=== PATIENT | female | born 1995 | race Two or more races ===

== ENCOUNTER 2024-10-10 07:34 | Inpatient (IN) ==
[~2024-10-10 07:34] MED LIST: NS 0.45% 1000 ml BAG 1,000 ML IV SCH; Naloxone 0.4 mg VIAL 0.4 mg/ml 1 ml VIAL IV PRN; Ondansetron 4 mg VIAL 2 MG/ML 2 ml VIAL IV PRN
[2024-10-10] MEDS ORDERED: Heparin 5000 UNITS/ML 1 mL VIAL ONE (07:56)
[2024-10-10] MEDS ORDERED: ceFAZolin 1 GM in Dextrose 1 GM/50 ML BAG ONE (07:56)
[2024-10-10] MEDS ORDERED: Scopolamine 1 mg/72hr PATCH ONE (07:56)
[2024-10-10] MEDS ORDERED: ceFAZolin 2 GM PREMIX 2 GM/50 ML BAG ONE (07:57)
[2024-10-10] MEDS: Scopolamine 1 mg/72hr PATCH TRANSDERM ONE (08:18)
[2024-10-10] MEDS ORDERED: Dexamethasone IV 4 MG/ML VIAL 1 ml VIAL ONE ×2 (08:19→09:05)
[2024-10-10] MEDS: Lactated Ringers 1000 ml BAG 1,000 ML IV SCH ×2 (08:19→14:20)
[2024-10-10] MEDS: Buffered Lidocaine 1% SYRIN 1 ml INTRADERM ONE (08:19)
[2024-10-10] MEDS ORDERED: Propofol 10 MG/ML 20 ML BTL ONE ×2 (08:19→09:05)
[2024-10-10] MEDS ORDERED: Lidocaine 2% PF 5 ML VIAL ONE ×2 (08:19→09:05)
[2024-10-10] MEDS: Acetaminophen IV 1 GM/100ML 1,000 MG/100 ML BAG IV ONE (08:19)
[2024-10-10] MEDS ORDERED: Ondansetron 4 mg VIAL 2 MG/ML 2 ml VIAL ONE ×2 (08:19→09:05)
[2024-10-10] MEDS ORDERED: Midazolam 2 mg/2 ml VIAL 1 mg/ml 2 ml VIAL (2 mg) ONE ×2 (08:20→09:05)
[2024-10-10] MEDS ORDERED: fentaNYL 250 mcg/5 ml 50 MCG/ML 5 ml VIAL (250 MCG) ONE (08:20)
[2024-10-10] MEDS ORDERED: Rocuronium 50 mg VIAL 10 mg/ml 5 ml VIAL (50 mg) ONE ×3 (08:20→12:08)
[2024-10-10 08:21] LABS: Rapid COVID-19 Molecular Undetected (Undetected)
[2024-10-10] MEDS ORDERED: fentaNYL 100 mcg/2 ml 50 MCG/ML VIAL ONE (09:05)
[2024-10-10] MEDS ORDERED: Methylene Blue 1% (ANTIDOTE) 10 MG/ML 10 ML SDV VIAL IVPB ONE (09:07)
[2024-10-10] MEDS ORDERED: Bupivacaine 0.25% EPI 200,000 30 ML SDV ONE (09:07)
[2024-10-10] MEDS ORDERED: Glycopyrrolate IV 0.2 MG/ML 1 ML VIAL ONE ×2 (09:21→10:34)
[2024-10-10] MEDS ORDERED: HYDROmorphone 0.5 MG/0.5 ML SYRINGE ONE (10:46)
[2024-10-10] MEDS ORDERED: HYDROmorphone 1 MG/1 ML SYRINGE IV SLOW PU PRN (11:25)
[2024-10-10] MEDS ORDERED: HYDROmorphone 1 MG/1 ML SYRINGE ONE (12:48)
[2024-10-10] MEDS: HYDROmorphone 1 MG/1 ML SYRINGE IV SLOW PU PRN (12:55)
[2024-10-10] MEDS: Acetaminophen IV 1 GM/100ML 1,000 MG/100 ML BAG IV SCH ×2 (14:07→17:34)
[2024-10-10] MEDS: Heparin 5000 UNITS/ML 1 mL VIAL SUBCUT SCH (14:08)
[2024-10-10] MEDS ORDERED: Phenylephrine 40 mcg/mL 10mL (400mcg) SYRINGE ONE (14:11)
[2024-10-10] MEDS: HYDROmorphone 0.5 MG/0.5 ML SYRINGE IV SLOW PU PRN (14:20)
[2024-10-10] MEDS: Ondansetron 4 mg VIAL 2 MG/ML 2 ml VIAL IV PRN (21:50)
[2024-10-11] MEDS ORDERED: HYDROcodone/ACET. 7.5/325 LIQ 15 ML UDC PO PRN (09:45)
[2024-10-11] MEDS: HYDROcodone/ACET. 7.5/325 LIQ 15 ML UDC PO PRN (10:37)
[2024-10-11] MEDS: D5W 1/2 NS KCl 20 meq 1000 ml 1,000 ML IV SCH (13:44)
[2024-10-11 13:56] VITALS: BP 133/74
== END 2024-10-11 15:30 | disposition home or self-care (01) | DRG 403 ==
LOC: AA 07:34 → SSU 14:06
PROVIDERS: ADMIT Surgery; ATTEND Surgery